=== PATIENT | male | born 1985 | race Caucasian/White ===

== ENCOUNTER 2023-11-22 07:40 | Emergency (ER) | payer BC, SELFPAY ==
[2023-11-22 07:40] VITALS: BP 138/74; PULSE 79; RESP 16; TEMP 35.5; O2SAT 96; BMI 36.7
--- NOTE | 2023-11-22 08:00 | EX.ED.DYSGE1 ---
HPI History of Present Illness Chief Complaint: Cold Sx Informant: patient Narrative Narrative: Patient is a 38-year-old male presenting with dizziness and concern for dehydration. He was diagnosed with COVID-19 in urgent care yesterday. He states on Saturday, 5 days ago he started feeling sick with a constellation of symptoms including cough, sore throat and fever. He had some mild associated shortness of breath/dyspnea on exertion. States he has had some phlegm. Denies any chest pain. States that dizziness feels like the room spinning and is worse with movement. He states it feels like he just drink a 12 pack of beer. Denies associated vision change. Does not have a mild headache. Has not had any medicines today for symptoms. Is also concerned because he feels dehydrated and they are supposed to drive to [place] for family visit tomorrow. [facility] Medical History Encounter for screening for COVID-19 Home Medications ?Medication ?Instructions ?Recorded ?Last Taken ?Type meclizine 25 mg tablet 25 mg PO 4X/DAY PRN PRN Dizziness 11/22/23 Unknown Rx #20 tabs Allergy/AdvReac Type Severity Reaction Status Date / Time No Known Allergies Allergy Verified 11/22/23 07:40 Social History Smoking Status: Never smoker ROS [facility] ED Constitutional Constitutional ED: Reports chills and fever(s) Eyes Eyes: Denies blurry vision or change in vision ENT ENT ED: Reports sore throat and other Details: Ear congestion, sinus congestion Cardiovascular Cardiovascular: Denies chest pain or palpitations Respiratory/Chest Respiratory/Chest: Reports cough, dyspnea and dyspnea on exertion Gastrointestinal Gastrointestinal: Reports diarrhea and nausea; Denies abdominal pain or vomiting Genitourinary Genitourinary ED: Denies urinary frequency Musculoskeletal Musculoskeletal: Denies arthralgias or myalgias Integumentary Denies rash Neurologic Neurologic: Reports headache(s); Denies paresthesias or weakness Psychiatric Psychiatric: Denies anxiety EXAM Physical Exam Const Vital Signs: 11/22/23 07:40 11/22/23 07:54 11/22/23 10:28 Temperature 96 F L 97.2 F L Temperature Source Temporal Oral Pulse Rate 79 75 Respiratory Rate 16 16 Respiratory Effort Normal Non-Labored Respiratory Pattern Normal Blood Pressure 138/74 H 127/69 H Blood Pressure Mean 95 88 Pulse Ox 96 98 Oxygen Delivery Method Room Air Room Air 11/22/23 11:49 Temperature 97.5 F L Temperature Source Pulse Rate 84 Respiratory Rate 16 Respiratory Effort Respiratory Pattern Blood Pressure 127/66 H Blood Pressure Mean 86 Pulse Ox 96 Oxygen Delivery Method Positive well nourished and well developed General Appearance ED: well developed and NAD HEENT Reports TM's clear and dry mucous membranes HEENT Narrative: No injection or erythema or bulge in the tympanic membrane's. Questionable fluid level noted on the right behind the TM Tympanic Membrane ED: Yes TM's clear Mouth ED: Yes dry mucous membranes Mouth: dry mucous membranes Eyes PERRL and EOMs intact bilaterally Neck supple Chest Wall inspection of chest normal and palpation of chest normal Resp normal respiratory effort and clear to auscultation bilaterally Cardio regular rate and regular rhythm GI normal to inspection, nondistended, normoactive bowel sounds Extremity normal to inspection General Extremety ED: Negative for edema General Extremity: Negative for edema Neuro oriented x3, CN's II-XII intact bilaterally and no sensory deficits noted Neuro Narrative: No truncal ataxia. Steady gait. On Osiris-Hallpike maneuver patient has reproduction of symptoms to the right with fatiguing horizontal nystagmus to the left. Sensorium / Orientation: alert Motor Exam: strength 5/5 throughout; Negative for general weakness Psych mental status grossly normal Skin no rashes or lesions noted MDM MDM MDM Narrative Medical decision making narrative: Patient evaluated for dizziness in the emergency room. He does have evidence of peripheral vertigo on exam coming from the right ear. Patient is given meclizine and IV fluids in the emergency room. He is positive COVID and overall just not feeling well. He appears nontoxic. He has normal [id number] no truncal ataxia. Patient is able to make to the bathroom but states he was feeling better after meclizine but felt worse when she started moving around. I do not think patient is such intractable vertigo that he requires admission at this time. Lab work largely unremarkable. I do not think he requires CT imaging of his brain. 2 view chest x-ray does not show any acute infiltrate on my interpretation as well as radiology. Patient be discharged home with symptomatic treatment including meclizine, instructions use [id number] Flonase for his nose as well as [id number] cough and cold medicine/Tylenol ibuprofen. Him and his verbalized agreement understand this plan. Is given return precautions. Discharged home in stable condition. Lab Data Attestation: I reviewed the patient's lab results. Labs: Laboratory Results - last 24 hr 11/22/23 08:15 WBC 4.7 RBC 4.96 Hgb 15.2 Hct 43.8 MCV 88.3 MCH 30.6 MCHC 34.7 RDW Std Deviation 36.7 RDW Coeff of Nikki 11.4 L Plt Count 218 MPV 10.5 Immature Gran % (Auto) 0.200 Neut % (Auto) 57.1 Lymph % (Auto) 28.4 [place] % (Auto) 10.7 H Eos % (Auto) 3.0 Baso % (Auto) 0.6 Absolute Neuts (auto) 2.7 Absolute Lymphs (auto) 1.33 Nucleated RBC % 0 Sodium 139 Potassium 3.7 Chloride 107 Carbon Dioxide 29.0 Anion Gap 3 L BUN 14 Creatinine 1.00 Estim Creat Clear Calc 141.95 Est GFR (MDRD) Af Amer 107 Est GFR (MDRD) Non-Af 88 BUN/Creatinine Ratio 14.0 Glucose 119 H Calcium 9.0 Total Bilirubin 0.50 AST 33 ALT 60 Alkaline Phosphatase 58 Total Protein 7.4 Albumin 3.8 Globulin 3.6 Albumin/Globulin Ratio 1.1 Radiography Chest X-Ray - ED: 2 View, Read by ED Physician, Read by Radiologist, No Acute Disease and No Infiltrates Diagnostic Testing: Clinical Impression(s) from Imaging Studies Chest X-Ray 11/22/23 08:35 IMPRESSION: Lower lung linear scarring or atelectasis. Electronically Signed: Javier Payan MD at 8:55 EDT , Discharge Plan Triage Chief Complaint: Cold Sx ED Provider: Aylin Dia Dx/Rx/DC Orders Clinical Impression: Peripheral vertigo involving right ear, COVID-19 virus infection Instructions: ED BPV Vertigo Prescriptions: New meclizine 25 mg tablet 25 mg PO 4X/DAY PRN PRN (Reason: Dizziness) Qty: 20 0RF Primary Care Provider: Ilsa Tucker Referrals: Ilsa Tucker MD [Primary Care Provider] - Felipe Schwab MD [Med Staff - Active Staff] - 1 Week if not improving Activity Restrictions/Additional Instructions: Drink lots of fluids. Alternate [id number] cold and flu medicine/Tylenol/ibuprofen for your symptoms. I recommend using Flonase daily for the next week as well. If your dizziness does not improve please follow-up with ENT (their information is given to the referral section). Return to the ER if you have a progression or worsening of your symptoms. Print Language: Syriac Disposition Disposition: Home, Self Care Discharge Date/Time: 11/22/23 11:50
[2023-11-22] MEDS: Meclizine HCl 25 MG Tablet PO (08:08)
[2023-11-22] MEDS: 0.9% Normal Saline (1000mL) 1,000 ML 1000 ML IV (08:14)
[2023-11-22 08:22] LABS: Absolute Lymphocyte Count 1.33 X10^3/uL (0.83-4.51); Absolute Neutrophil Count 2.7 X10^3/uL (2.0-7.7); Basophil# 0.03 X10^3/uL; Basophil% 0.6 % (0-1); Eosinophil# 0.14 X10^3/uL; Hematocrit 43.8 % (40-54); Hemoglobin 15.2 g/dL (13.0-16.5); Lymphocyte # 1.33 X10^3/ul (0.83-4.51); Lymphocyte % 28.4 % (19-41); Mean Corp Hgb Conc 34.7 g/dL (32-36); Mean Corpuscular Hgb 30.6 pg (27.0-32.0); Mean Corpuscular Volume 88.3 fL (80-94); Mean Platelet Vol. 10.5 fl (6.2-12.0); Monocyte% 10.7 % (0-10); NRBC Flagged by Analyzer 0 % (0-5); Neutrophil # 2.67 X10^3/uL (2.7-7.7); Neutrophil % 57.1 % (47-70); Platelet Count 218 K/mm3 (150-450); RBC Distribution Width CV 11.4 % (11.6-14.6); RBC Distribution Width SD 36.7 fl (35.1-43.9); Red Blood Count 4.96 M/mm3 (4.6-6.2); White Blood Count 4.7 K/mm3 (4.4-11.0)
--- NOTE | 2023-11-22 08:35 | RAD_ITS ---
STUDY: X-RAY CHEST REASON FOR EXAM: Male, 38 years old. SOB TECHNIQUE: PA and lateral views of the chest. COMPARISON: None. FINDINGS: There is mild lower lung linear scarring or atelectasis. There is no demonstrated pleural abnormality. Normal size heart. Normal mediastinum and sandrita. Normal visualized pulmonary arteries. Normal visualized aortic arch and descending thoracic aorta. Normal visualized thoracic spine. Normal visualized ribs, clavicles, and shoulders. There is no demonstrated abnormality of the visualized soft tissue structures of the upper abdomen. RAD/Chest PA and Lateral IMPRESSION: Lower lung linear scarring or atelectasis. Electronically Signed: Javier Payan MD at 8:55 EDT ,
[2023-11-22 08:39] LABS: ALB/GLOB Ratio 1.1 RATIO (0.9-2.4); AST(SGOT) 33 U/L (15-37); Alanine Aminotransfer ALT/SGPT 60 U/L (16-61); Albumin, Serum 3.8 g/dL (3.2-5.0); Alkaline Phosphatase 58 U/L (45-117); Anion Gap 3 (5-15); BUN 14 mg/dL (7-18); Chloride 107 mmol/L (98-107); EST Glomerular Filtration Rate 88 mL/min (>60); Est Glom Filt Rate - Afr Amer 107 mL/min (>60); Estimated Creatinine Clearance 141.95 ml/min; Globulin 3.6 g/dL (2.2-4.2); Glucose 119 mg/dL (74-106); Potassium 3.7 mmol/L (3.5-5.1); Protein, Total 7.4 g/dL (6.4-8.2); Sodium Level 139 mmol/L (136-145)
[2023-11-22 10:28] VITALS: BP 127/69; PULSE 75; RESP 16; TEMP 36.2; O2SAT 98
[2023-11-22 11:49] VITALS: BP 127/66; PULSE 84; RESP 16; TEMP 36.4; O2SAT 96
== END 2023-11-22 11:50 | disposition home or self-care (01) ==
PROVIDERS: Emergency Provider Emergency Medicine; PCP Internal Medicine; Visit Provider Emergency Medicine
DX: U07.1 COVID-19 (principal); H81.391 Other peripheral vertigo, right ear; R19.7 Diarrhea, unspecified; R11.0 Nausea; R51.9 Headache, unspecified
CPT/HCPCS: 71046; 80053; 85025; 96360; 99282; J7030; A4216